=== PATIENT | female | born 1955 | race Caucasian/White ===

== ENCOUNTER 2017-04-22 10:08 | Emergency (ER) | payer BC ==
[2017-04-22 11:00] VITALS: BP 166/95
--- NOTE | 2017-04-22 12:07 | RAD ---
HISTORY: Fall, right elbow pain COMPARISONS: None VIEWS: 7, Frontal, lateral, and oblique views of the right elbow with frontal and lateral views of the right forearm FINDINGS: BONE DENSITY: Normal. BONES: There is a linear lucency along the ulnar aspect of the radial head. JOINTS: There is a posterior supracondylar fat pad consistent with joint effusion ALIGNMENT: There is no dislocation. SOFT TISSUES: Unremarkable. OTHER FINDINGS: None. IMPRESSION: LINEAR LUCENCY ALONG THE ULNAR ASPECT OF THE RADIAL HEAD. GIVEN THE PRESENCE OF A JOINT EFFUSION AND HISTORY OF TRAUMA, THIS IS CONCERNING FOR A NONDISPLACED RADIAL HEAD FRACTURE
--- NOTE | 2017-04-22 12:29 | UC ---
Enmanuel Le SooYoung, scribed for Belinda Pinon MD on 04/22/17 at 1215 . Upper Extremity HPI - HPI Summary HPI Summary: A 61 y/o F presents to [facility] with c/o RUE pain after a fall onset two days ago. Pt reports mild edema to elbow, pain with movement of elbow. No open wounds, no ecchymosis, no abrasions. No paresthesia. No wrist, hand pain. No shoulder pain. Pt has applied ice. No analgesia. Pt RHD. Pt denies back pain, head injury, cp, sob, abd pain, hematuria, incontinence. Pt states she [place] in [place], and landed on the forearm of her RUE and backside. Pt reports in september 2016 she dislocated same elbow. Had return of full ROM. Pt called Dr. Sandoval's office today - made appt for tomorrow. Patient's medication reviewed this visit. - History of Current Complaint Chief Complaint: UCUpperExtremity Stated Complaint: ELBOW INJURY Time Seen by Provider: 04/22/17 11:15 Hx Obtained From: Patient Onset/Duration: Sudden Onset, Lasting Hours, Still Present Severity Initially: Moderate Severity Currently: Moderate Pain Intensity: 5 Pain Scale Used: 0-10 Numeric Location Of Pain: Is Discrete @ - R elbow Character: Aching Aggravating Factor(s): Movement, Lifting, Flexion, Extension Alleviating Factor(s): Ice, Rest Associated Signs And Symptoms: Positive: Swelling - Allergies/Home Medications Allergies/Adverse Reactions: Allergies Allergy/AdvReac Type Severity Reaction Status Date / Time Lidocaine AdvReac See Comment Verified 04/22/17 11:01 PMH/Surg Hx/FS Hx/Imm Hx Previously Healthy: No Endocrine History Of: Reports: Thyroid Disease Denies: Diabetes Cardiovascular History Of: Denies: Cardiac Disorders, Hypertension Respiratory History Of: Denies: COPD, Asthma GI/ History Of: Denies: Ulcer Cancer History Of: Denies: Breast Cancer - Surgical History Surgical History: Yes Surgery Procedure, Year, and Place: tubal ligation c-sections x2, d&c x2, tonsillectomy and adenoidectomy - Family History Known Family History: Positive: Hypertension - Social History Occupation: Employed Full-time Lives: With Family Alcohol Use: Daily Alcohol Amount: 1-2 glasses of wine Substance Use Type: None Smoking Status (MU): Never Smoked Tobacco Review of Systems Constitutional: Negative Skin: Negative Eyes: Negative ENT: Negative Respiratory: Negative Cardiovascular: Negative Gastrointestinal: Negative Genitourinary: Negative Motor: Other - right elbow Neurovascular: Negative Musculoskeletal: Arthralgia - R elbow, Edema - mild RUE, sacrum Neurological: Negative Psychological: Negative All Other Systems Reviewed And Are Negative: Yes Physical Exam Vital Signs: Initial Vital Signs Temp 98.8 F 04/22/17 10:54 Pulse 71 04/22/17 10:54 Resp 16 04/22/17 10:54 BP 166/95 04/22/17 10:54 Pulse Ox 100 04/22/17 10:54 Diagnostics - Radiology forearm XR Xray Interpretation: Positive (See Comments) - IMPRESSION: LINEAR LUCENCY ALONG THE ULNAR ASPECT OF THE RADIAL HEAD. GIVEN THE PRESENCE OF A JOINT EFFUSION AND HISTORY OF TRAUMA, THIS IS CONCERNING FOR A NONDISPLACED RADIAL HEAD FRACTURE Radiology Interpretation Completed By: Radiologist elbow XR Xray Interpretation: Positive (See Comments) - IMPRESSION: LINEAR LUCENCY ALONG THE ULNAR ASPECT OF THE RADIAL HEAD. GIVEN THE PRESENCE OF A JOINT EFFUSION AND HISTORY OF TRAUMA, THIS IS CONCERNING FOR A NONDISPLACED RADIAL HEAD FRACTURE Radiology Interpretation Completed By: Radiologist UE CT Xray Interpretation: Positive (See Comments) - UE CT RESULTS, IMPRESSION: 1. Small right elbow joint effusion in the setting of a minimally displaced right ulnar coronoid fracture. 2. Bony foci described above overlying the posterior lateral aspect of the lateral humeral epicondyle could represent degenerative changes and/or calcific tendinopathy or avulsion fracture. Please correlate to focality of the patient's pain on physical examination. Radiology Interpretation Completed By: Radiologist Re-Evaluation - Re-Evaluation 1 Re-Evaluation Time: 12:24 Change: Unchanged Comment: Discussing imaging results with pt. Will order CT for additional imaging. PT voiced understanding. Upper Extremity Course/Dx - Course Course Of Treatment: Blood pressure noted and patient informed to follow up with PCP. Pt was called at 1415 after D/C to confirm CT results. Discharge - Discharge Plan Condition: Stable Disposition: HOME Patient Education Materials: Elbow Fracture (ED) Referrals: Roman Elmore MD [Primary Care Provider] - Haleigh Sandoval MD [Medical Doctor] - Additional Instructions: - WEar sling and splint until you are seen in follow-up by orthopedics - keep your appointment tomorrow as scheduled - Okay to alternate ibuprofen (Advil, Motrin) and tylenol every 3 hours for pain. Take with food. - apply ice (Wrapped in a towel) 20 minutes at a time, 2-3 times a day - Wiggle your fingers frequent to help with circulation through your arm - Contact Dr. Sandoval or go to the Emergency department with any questions or concerns The documentation as recorded by the Enmanuel marie SooYoung accurately reflects the service I personally performed and the decisions made by me, Belinda Pinon MD.
--- NOTE | 2017-04-22 14:08 | RAD ---
INDICATION: Further characterization of right elbow injury after a fall Thursday, April 20, 2017. COMPARISON: Same day elbow xray TECHNIQUE: Noncontrast CT examination of the right elbow. Axial images were acquired and sagittal and coronal reformats were created and independently analyzed. FINDINGS: Best depicted on the sagittal view images there is a slightly displaced fracture through the right ulnar coronoid process (sagittal image 25 and 38). This fracture is also well depicted on the coronal plane images (image 24). Overlying the posterior lateral aspect of the right lateral humeral epicondyles is a subcentimeter bony focus (coronal image 20) as well as a more curvilinear bony density (image 18). Likely these bony foci represent chronic degenerative changes of the common tendinous origin of the extension and external rotation muscles of the right forearm. Less likely, the curvilinear density could represent an avulsion fracture. The remaining visualized bones are intact and appropriately aligned. There is a small joint effusion. IMPRESSION: 1. Small right elbow joint effusion in the setting of a minimally displaced right ulnar coronoid fracture. 2. Bony foci described above overlying the posterior lateral aspect of the lateral humeral epicondyle could represent degenerative changes and/or calcific tendinopathy or avulsion fracture. Please correlate to focality of the patient's pain on physical examination.
== END 2017-04-22 13:45 | disposition home or self-care (01) ==
LOC: UCEAST 10:08
DX: S42.401A Unspecified fracture of lower end of right humerus, initial encounter for closed fracture (principal); W18.30XA Fall on same level, unspecified, initial encounter; Y92.89 Other specified places as the place of occurrence of the external cause
CPT/HCPCS: 99212; G0463

== ENCOUNTER 2017-06-11 11:21 | Day surgery (SDC) | payer BC ==
[~2017-06-11 11:21] MED LIST: Acetaminophen TAB* 325 MG PO PRN; Buffered Lidocaine 0.9% SYRIN* 5 ML/SYR SYRINGE INTRADERM ONE
[2017-06-11] MEDS ORDERED: Midazolam* 1 MG/ML 2 ML VIAL (2 MG) ONE ×2 (13:17→13:30)
[2017-06-11 14:04] VITALS: BP 129/77
[2017-06-11] MEDS ORDERED: Phenylephrine 2.5% OPTH.SOL* 2 ML BTL ONE (14:55)
[2017-06-11] MEDS ORDERED: Flurbiprofen 0.03% OPTH.SOL* 2.5 ML BTL ONE (14:55)
[2017-06-11] MEDS ORDERED: Lidocaine 1% MPF* 2 ML VIAL ONE (14:55)
[2017-06-11] MEDS ORDERED: acetaZOLAMIDE TAB* 250 MG ONE (14:55)
[2017-06-11] MEDS ORDERED: Cyclopentolate 1% OPTH.SOL* 2 ML BTL ONE (14:55)
[2017-06-11] MEDS ORDERED: Povidone Iodine 5% OPTH* 30 ML BTL ONE (14:55)
[2017-06-11] MEDS ORDERED: Buffered Lidocaine 0.9% SYRIN* 5 ML/SYR SYRINGE ONE (14:55)
[2017-06-11] MEDS ORDERED: Neomycin/Polymy/Dex OPTH.SUSP* MAXITROL 0.1% 5 ML ONE (14:55)
[2017-06-11] MEDS ORDERED: Proparacaine 0.5% OPHTH.SOL* 15 ML BTL ONE (14:55)
--- NOTE | 2017-06-12 12:18 | OP ---
DATE OF OPERATION: 06/11/17 [facility] DATE OF : 51 SURGEON: Sanju Webster M.D. PREOPERATIVE DIAGNOSIS: Cataract, right eye. POSTOPERATIVE DIAGNOSIS: Cataract, right eye. OPERATIVE PROCEDURE: Phacoemulsification, right eye with IOL. DESCRIPTION OF PROCEDURE: The patient was brought to the operating room after being given 1/2% Alcaine with epinephrine drops in the preoperative area. The eye was prepped and draped in the usual sterile fashion. Sterile drape and eyelid speculum were placed. Again, topical 1/2% Alcaine with epinephrine was given. A paracentesis incision was made at the 9 o'clock position with the No.75 blade. Clear cornea incision 2.2 x 2.2-mm was created at the 12 o'clock position starting at the anterior limbus using the 2.2-mm keratome. The anterior chamber was irrigated with 0.4 mL of 1% non-preservative intracameral lidocaine and filled with DisCoVisc. A capsulorrhexis was completed using the cystotome and the Utrata forceps. Hydrodissection was performed with balanced salt solution. The lens nucleus was removed with the Phacoemulsification handpiece without incident. Cortex was removed with the irrigation-aspiration handpiece. The capsular bag was re-inflated using DisCoVisc and an [id number] 22.5 implant was inserted with the shooter. The irrigation-aspiration handpiece was used to remove all residual DisCoVisc. The eye was refilled with balanced salt solution and the wound checked and found to be watertight. Topical Maxitrol drops were given. [id number]/[facility] #: [id number] MTDD
== END 2017-06-11 14:20 | disposition home or self-care (01) ==
LOC: OREAST 11:21
PROVIDERS: ATTEND Specialist
DX: H25.811 Combined forms of age-related cataract, right eye (principal); Z96.1 Presence of intraocular lens; E06.3 Autoimmune thyroiditis; K21.9 Gastro-esophageal reflux disease without esophagitis; J45.909 Unspecified asthma, uncomplicated; Z88.4 Allergy status to anesthetic agent; Z88.1 Allergy status to other antibiotic agents; Z87.891 Personal history of nicotine dependence
CPT/HCPCS: A9270-GY; J2250; V2632